=== PATIENT | male | born 1990 | race Hispanic/Latino ===

== ENCOUNTER 2016-07-30 19:19 | Emergency (ER) | payer BC ==
[2016-07-30 19:27] VITALS: BP 126/80; PULSE 108; RESP 16; TEMP 98.5; O2SAT 97
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
== END 2016-07-31 01:42 | disposition home or self-care (01) ==
LOC: H.ER 19:19
DX: F10.10 Alcohol abuse, uncomplicated (principal); Y90.8 Blood alcohol level of 240 mg/100 ml or more
CPT/HCPCS: 82948; 99282; G0480